=== PATIENT | female | born 1940 | race African-American/Black ===

== ENCOUNTER → 2016-09-02 | Outpatient (CLI) | payer MEDICARE, BC ==
[2015-07-01 17:00] VITALS: BP 151/71
[~2016-09-02] MED LIST: ASPI-482 PO; BIFI4CAP PO; CETI10TA16 PO; LORA0.5T PO; OMEP20TA PO; ONDA4TAB10 SL; POTA10TA31 PO; SIMV20TA PO
[2016-09-02 12:08] LABS: CREATININE 0.9 mg/dL (0.6-1.0); GFR 74.1
== END | disposition home or self-care (01) ==
LOC: LAB 11:23
PROVIDERS: ATTEND Psychiatry & Neurology Neurology
DX: R51 Headache (principal)
CPT/HCPCS: 36415; 82565; 84520

== ENCOUNTER → 2017-05-22 | Outpatient (CLI) | payer MEDICARE, BC ==
[2015-07-01 17:00] VITALS: BP 151/71
[~2017-05-22] MED LIST changes: -OMEP20TA PO; +OMEP20TA8 PO
== END | disposition home or self-care (01) ==
LOC: LAB 10:39
PROVIDERS: ATTEND Psychiatry & Neurology Neurology
DX: R41.3 Other amnesia (principal)
CPT/HCPCS: 36415; 82306; 82607

== ENCOUNTER → 2017-05-29 | Outpatient (CLI) | payer MEDICARE, BC ==
[2015-07-01 17:00] VITALS: BP 151/71
--- NOTE | 2017-05-29 16:33 | EEG ---
DATE OF SERVICE: 05/29/2017 ELECTROENCEPHALOGRAM NUMBER: [id number] OBJECTIVE: This is a 76-year-old female patient with history of memory loss. EEG was requested to evaluate cerebral activity. METHODS: Twenty electrodes were applied according to the international 10-20 electrode placement system. EKG monitoring, hyperventilation, intermittent photic stimulation, monopolar and bipolar montages are routinely utilized. The record was obtained on a digital system with video monitoring. FINDINGS: 1. Background: The patient was recorded in the awake and drowsy states. No sleep state was recorded. The overall background amplitude is 10-30 microvolts. A posterior dominant rhythm of 8 Hz is observed. 2. Abnormalities: No specific epileptiform discharge or electrographic seizure is seen. No focal or diffuse slowing. 3. Activation: Hyperventilation was performed with good efforts and normal response. Intermittent photic stimulation was performed with photic driving. IMPRESSION: This EEG is a normal study for the awake and drowsy states. No sleep state was recorded. No focal, lateralizing, specific epileptiform discharge or electrographic seizure is seen. BATSHEVA CALDWELL MD DR: PINKY/carlos JOB#: [id number] / [id number] JOEY
== END | disposition home or self-care (01) ==
LOC: RT 10:49
PROVIDERS: ATTEND Psychiatry & Neurology Neurology
DX: R06.4 Hyperventilation (principal); R41.3 Other amnesia
CPT/HCPCS: 95816

== ENCOUNTER 2017-11-07 12:29 | Emergency (ER) | payer MEDICARE, BC ==
[2017-11-07 13:04] LABS: ADD MAN DIFF? NO
[2017-11-07] MEDS: fentaNYL PF VIAL 100 MCG/2 ML VIAL IV (13:05)
[2017-11-07] MEDS: IV NORMAL SALINE 1000ML BAG 1,000 ML IV (13:05)
[2017-11-07 13:17] LABS: BASO % 1 % (0-3); BILIRUBIN,URINE NEGATIVE (NEG); CLARITY,URINE CLEAR; EOS # 0.3 x10^3/uL (0.0-0.7); EOS % 6 % (0-3); GLUCOSE,URINE NEGATIVE (NEG); HEMATOCRIT 40.4 % (36.0-47.0); HEMOGLOBIN 13.4 g/dL (12.0-15.5); LYMPH # 1.1 x10^3/uL (1.0-4.8); LYMPH % 23 % (24-48); MEAN CORPUSCULAR HEMOGLOBIN 30 pg (25-35); MEAN CORPUSCULAR HGB CONC 33 g/dL (31-37); MEAN CORPUSCULAR VOLUME 89 fL (79-100); MONO # 0.4 x10^3/uL (0.0-1.1); MONO % 9 % (0-9); NEUT % 62 % (31-73); NITRITE,URINE NEGATIVE (NEG); PH,URINE 7.5; PLATELET COUNT 215 x10^3/uL (140-400); PROTEIN,URINE NEGATIVE (NEG-TRACE); RED BLOOD COUNT 4.53 x10^6/uL (3.50-5.40); UROBILINOGEN,URINE 0.2 mg/dL (0.2 mg/dL); WHITE BLOOD COUNT 4.8 x10^3/uL (4.0-11.0)
[2017-11-07 13:21] LABS: ANION GAP 9 (6-14); BLOOD UREA NITROGEN 18 mg/dL (7-20); CALCIUM 9.4 mg/dL (8.5-10.1); CARBON DIOXIDE 29 mmol/L (21-32); CHLORIDE 102 mmol/L (98-107); CREATININE 1.2 mg/dL (0.6-1.0); GLUCOSE 95 mg/dL (70-99); POTASSIUM 3.9 mmol/L (3.5-5.1); SODIUM 140 mmol/L (136-145)
[2017-11-07 13:22] LABS: PROTHROMBIN TIME PATIENT 12.6 SEC (11.7-14.0)
[2017-11-07 13:26] LABS: ALBUMIN 3.7 g/dL (3.4-5.0); ALK PHOS 53 U/L (46-116); ALT (SGPT) 33 U/L (14-59); AST (SGOT) 23 U/L (15-37); DIRECT BILIRUBIN < 0.1 mg/dL (0.0-0.2); LIPASE 125 U/L (73-393); MAGNESIUM 2.3 mg/dL (1.8-2.4); TOTAL BILIRUBIN 0.3 mg/dL (0.2-1.0); TOTAL PROTEIN 7.2 g/dL (6.4-8.2)
[2017-11-07 13:28] LABS: BARBITURATES NEG (NEG); BENZODIAZEPINES NEG (NEG); CANNABINOIDS NEG (NEG); COCAINE NEG (NEG); METHADONE NEG (NEG); OPIATES NEG (NEG); PHENCYCLIDINE NEG (NEG)
[2017-11-07 13:29] LABS: AMPHETAMINE/METHAMPHETAMINE NEG (NEG); ETHANOL, URINE NEG (NEG)
[2017-11-07 13:34] LABS: TROPONINI < 0.017 ng/mL (0.000-0.055)
[2017-11-07 13:37] LABS: COLOR,URINE STRAW
[2017-11-07 13:40] LABS: THYROID STIM HORMONE (TSH) 0.525 uIU/mL (0.358-3.74)
[2017-11-07 13:40] LABS: BACTERIA,URINE 0 /HPF (0-FEW); RBC,URINE 0 /HPF (0-2); SQUAMOUS EPITHELIAL CELL,UR FEW /LPF; WBC,URINE 0 /HPF (0-4)
[2017-11-07 13:43] LABS: CKMB MASS < 0.5 ng/mL (0.0-3.6); CREATINE KINASE 55 U/L (26-192)
[2017-11-07 13:43] LABS: NT-PRO BNP 140 pg/mL (0-449)
== END 2017-11-07 15:22 | disposition home or self-care (01) ==
LOC: ER 12:29
DX: K59.00 Constipation, unspecified (principal); R10.13 Epigastric pain; R10.32 Left lower quadrant pain; I10 Essential (primary) hypertension; E11.9 Type 2 diabetes mellitus without complications
CPT/HCPCS: 36415; 74022; 80048; 80076; 80307; 81001; 82553; 83690; 83735; 83880; 84443; 84484; 85025; 85610; 93005; 96361; 96374; 99285-25; J3010; J7030

== ENCOUNTER → 2018-03-08 | Outpatient (CLI) | payer MEDICARE, BC ==
[2018-03-08 14:50] LABS: ALK PHOS 55 U/L (46-116); ALT (SGPT) 25 U/L (14-59); ANION GAP 7 (6-14); AST (SGOT) 19 U/L (15-37); BLOOD UREA NITROGEN 14 mg/dL (7-20); BUN/CREATININE RATIO 14 (6-20); CALCIUM 9.2 mg/dL (8.5-10.1); CARBON DIOXIDE 31 mmol/L (21-32); CHLORIDE 104 mmol/L (98-107); CREATINE KINASE 66 U/L (26-192); GFR 65.4; GLUCOSE 87 mg/dL (70-99); POTASSIUM 3.7 mmol/L (3.5-5.1); SODIUM 142 mmol/L (136-145); TOTAL BILIRUBIN 0.4 mg/dL (0.2-1.0); TOTAL PROTEIN 7.9 g/dL (6.4-8.2)
[2018-03-08 15:27] LABS: VITAMIN-B12 664 pg/mL (247-911)
[2018-03-08 16:17] LABS: SEDIMENTATION RATE 8 (0-25)
== END | disposition home or self-care (01) ==
LOC: LAB 14:05
DX: R41.3 Other amnesia (principal); I10 Essential (primary) hypertension; E11.9 Type 2 diabetes mellitus without complications; E78.5 Hyperlipidemia, unspecified; E78.00 Pure hypercholesterolemia, unspecified; K21.9 Gastro-esophageal reflux disease without esophagitis
CPT/HCPCS: 36415; 80053; 82550; 82607; 84443; 85651

== ENCOUNTER 2018-03-29 16:17 | Emergency (ER) | payer MEDICARE, BC ==
[~2018-03-29] VITALS: Ht 157.5 cm; Wt 57.2 kg
[2018-03-29 16:38] VITALS: BP 133/65
[2018-03-29] MEDS ORDERED: PRED20TA PO (17:04)
--- NOTE | 2018-03-29 17:04 | PHYS DOC ---
Past Medical History Past Medical History: Anxiety, Constipation, GERD, Hypertension Additional Past Medical Histor: Palpitations, allergies Past Surgical History: No Surgical History Additional Past Surgical Histo: Hemmorhoids Alcohol Use: None Drug Use: None Adult General Chief Complaint Chief Complaint: SKIN RASH/ABSCESS HPI HPI Patient is a 77 year old female who presents with pruritic, erythematous rash to trunk and extremities for the last 2 days. Patient denies any new products. She has tried some [id number] cream without relief. Review of Systems Review of Systems Constitutional: Denies fever or chills [] Respiratory: Denies cough or shortness of breath [] Integument: Rash to trunk and extremities All other systems were reviewed and found to be within normal limits, except as documented in this note. Allergies Allergies Allergies Coded Allergies Type Severity Reaction Last Updated Verified No Known Drug Allergies 06/13/14 No Physical Exam Physical Exam Constitutional: Well developed, well nourished, no acute distress, non-toxic appearance. [] HENT: Normocephalic, atraumatic Eyes: PERRLA, EOMI, conjunctiva normal, no discharge. [] Neck: Normal range of motion, no tenderness, supple, no stridor. [] Skin: Warm, dry, no erythema. Erythematous, maculopapular rash to trunk and extremities Neurologic: Alert and oriented X 3, normal motor function, normal sensory function, no focal deficits noted. [] Psychologic: Affect normal, judgement normal, mood normal. [] Current Patient Data Vital Signs Vital Signs Date Time Temp Pulse Resp B/P (MAP) Pulse Ox O2 Delivery O2 Flow Rate FiO2 03/29/18 16:38 99.4 89 16 133/65 (87) 98 Room Air 99.4 EKG EKG [] Radiology/Procedures Radiology/Procedures [] Course & Med Decision Making Course & Med Decision Making Pertinent Labs and Imaging studies reviewed. (See chart for details) Plan: Prednisone burst, supportive care, follow up with PCP, return precautions reviewed Dragon Disclaimer Dragon Disclaimer This electronic medical record was generated, in whole or in part, using a voice recognition dictation system. Departure Departure Impression: Primary Impression: Allergic dermatitis Disposition: 01 HOME, SELF-CARE Condition: GOOD Referrals: CHRISTIAN CASAREZ Jr, MD (PCP) Patient Instructions: Contact Dermatitis Scripts Prednisone (PREDNISONE) 20 Mg Tablet 40 MG PO DAILY, #10 TAB Prov: ALBARO GIANG APRN 03/29/18 ALBARO GIANG APRN Mar 29, 2018 17:04
== END 2018-03-29 17:11 | disposition home or self-care (01) ==
LOC: ER 16:17
DX: L23.9 Allergic contact dermatitis, unspecified cause (principal); K21.9 Gastro-esophageal reflux disease without esophagitis; I10 Essential (primary) hypertension
CPT/HCPCS: 99283

== ENCOUNTER → 2018-04-20 | Outpatient (CLI) | payer MEDICARE, BC ==
[2018-03-29 16:38] VITALS: BP 133/65
[~2018-04-20] MED LIST changes: +PRED20TA PO
--- NOTE | 2018-04-20 09:56 | RAD ---
CT HEAD WO CONTRAST History: CHRONIC NONINTRACTABLE HEADACHE Comparison: July 01, 2015 Technique: Noncontrast CT imaging was performed of the head. Exposure: One or more of the following individualized dose reduction techniques were utilized for this examination: 1. Automated exposure control 2. Adjustment of the mA and/or kV according to patient size 3. Use of iterative reconstruction technique. Findings: No acute extra-axial or parenchymal hemorrhage is identified. There is no significant intra-axial mass effect, midline shift, or extra-axial fluid collection. The galeano-white differentiation of the major vascular territories is preserved. The ventricles, sulci, and cisterns are within normal limits in size and configuration. The mastoid air cells and the visualized paranasal sinuses are aerated. No acute calvarial abnormality is identified. There is some atherosclerotic calcification of the carotid siphons bilaterally. Impression: 1. No acute intracranial abnormality is identified. Electronically signed by: Julio Miles MD (04/20/2018 9:53 AM) [facility]
== END | disposition home or self-care (01) ==
LOC: CT 07:57
PROVIDERS: ATTEND Psychiatry & Neurology Neurology
DX: I65.23 Occlusion and stenosis of bilateral carotid arteries (principal); I10 Essential (primary) hypertension; E11.9 Type 2 diabetes mellitus without complications; K21.9 Gastro-esophageal reflux disease without esophagitis; E78.00 Pure hypercholesterolemia, unspecified; Z86.010 Personal history of colon polyps; Z83.3 Family history of diabetes mellitus
CPT/HCPCS: 70450

== ENCOUNTER → 2018-10-28 | Outpatient (CLI) | payer MEDICARE, BC ==
--- NOTE | 2018-10-28 12:57 | KCIC ---
EXAM: Brain MRI without contrast. HISTORY: Slurred speech. TECHNIQUE: Multiplanar, multisequence magnetic resonance imaging of the brain was performed without contrast. COMPARISON: None. FINDINGS: There is no restricted diffusion to suggest acute or subacute infarction. There are multiple tiny foci of subtle effect throughout the cerebral hemispheres, likely due to chronic microhemorrhage. There is no mass effect or midline shift. There is no hydrocephalus. There are multiple scattered foci of T2/FLAIR hyperintensity within the cerebral white matter. There is mild cerebral volume loss. There is evidence of lens surgery. There is paranasal sinus because of thickening with small left maxillary sinus mucous retention cysts. The mastoid air cells are unremarkable. There are normal flow voids within the cerebral vessels. No calvarial lesion is seen. There are degenerative changes at the visualized upper cervical levels. IMPRESSION: 1. Multiple scattered focal areas of signal change within the cerebral white matter, a nonspecific finding which is most commonly due to chronic small vessel disease in patients of this age. 2. Scattered foci of suspected chronic microhemorrhage within the cerebral hemispheres. 3. Mild cerebral volume loss. 4. No acute intracranial finding. Electronically signed by: Saritha Capone MD (10/28/2018 12:54 PM) [facility]
== END | disposition home or self-care (01) ==
LOC: KCIC MRI 11:01
PROVIDERS: ATTEND Psychiatry & Neurology Neurology
DX: G93.89 Other specified disorders of brain (principal); J34.1 Cyst and mucocele of nose and nasal sinus; R47.81 Slurred speech; M47.892 Other spondylosis, cervical region
CPT/HCPCS: 70551

== ENCOUNTER → 2018-12-24 | Outpatient (CLI) | payer MEDICARE, BC ==
--- NOTE | 2018-12-31 20:15 | EEG ---
DATE OF SERVICE: 12/24/2018 EEG NUMBER: [id number] OBJECTIVE: This is a 78-year-old -[place] female patient with history of cognitive function impairment and memory decline. EEG was requested to evaluate cerebral activity. METHODS: Twenty electrodes were applied according to the international 10-20 electrode placement system. EKG monitoring, hyperventilation, intermittent photic stimulation, monopolar and bipolar montages were routinely utilized. The record was obtained on a digital system with video monitoring. FINDINGS: 1. Background: The patient was recorded in the awake and drowsy states. No actual sleep state was recorded. The overall background amplitude is 10-20 microvolts. A posterior dominant rhythm of 8 Hz was observed. 2. Abnormalities: No specific epileptiform discharge or electrographic seizure was seen. No focal or diffuse slowing. 3. Activation: Hyperventilation was performed with fair efforts and normal response. Intermittent photic stimulation was performed with photic driving. IMPRESSION: This EEG is within the normal limits of the study for the awake and drowsy states. No actual sleep state was recorded. No focal, lateralizing, specific epileptiform discharge or electrographic seizure is seen. BATSHEVA CALDWELL MD DR: PINKY/carlos JOB#: [id number] / [id number] JOEY
== END | disposition home or self-care (01) ==
LOC: RT 09:54
PROVIDERS: ATTEND Psychiatry & Neurology Neurology
DX: R41.89 Other symptoms and signs involving cognitive functions and awareness (principal)
CPT/HCPCS: 95816

== ENCOUNTER → 2019-03-11 | Outpatient (CLI) | payer MEDICARE, BC ==
--- NOTE | 2019-03-11 12:24 | EKG ---
[facility] [address] [place] [address] Test Date: 2019-03-11 Test Time: 12:02:27 Pat Name: SEGUNDO SANCHEZ Department: Room: Gender: F [employer] Control Room Operator: : 1940 Requested By: BATSHEVA CALDWELL Order Number: [id number] Reading MD: Measurements Intervals [place] Rate: 65 P: 47 DC: 140 QRS: -19 QRSD: 74 T: 13 QT: 426 QTc: 444 Interpretive Statements SINUS RHYTHM LEFTWARD AXIS NO SPECIFIC ECG ABNORMALITIES RI6.01 Unconfirmed report Compared to ECG 11/07/2017 12:40:39 Left-axis deviation now present
== END | disposition home or self-care (01) ==
LOC: EKG 11:43
PROVIDERS: ATTEND Psychiatry & Neurology Neurology
DX: F03.90 Unspecified dementia, unspecified severity, without behavioral disturbance, psychotic disturbance, mood disturbance, and anxiety (principal)
CPT/HCPCS: 93005

== ENCOUNTER 2019-09-18 14:08 | Emergency (ER) | payer MEDICARE, BC ==
[~2019-09-18] VITALS: Ht 157.5 cm; Wt 114.0 kg
[2019-09-18 15:03] LABS: BASO % 1 % (0-3); EOS # 0.3 x10^3/uL (0.0-0.7); EOS % 9 % (0-3); HEMATOCRIT 38.8 % (36.0-47.0); HEMOGLOBIN 13.1 g/dL (12.0-15.5); LYMPH # 1.6 x10^3/uL (1.0-4.8); LYMPH % 52 % (24-48); MEAN CORPUSCULAR HEMOGLOBIN 30 pg (25-35); MEAN CORPUSCULAR HGB CONC 34 g/dL (31-37); MEAN CORPUSCULAR VOLUME 89 fL (79-100); MONO # 0.3 x10^3/uL (0.0-1.1); MONO % 9 % (0-9); NEUT # 0.9 x10^3/uL (1.8-7.7); NEUT % 29 % (31-73); PLATELET COUNT 152 x10^3/uL (140-400); RED BLOOD COUNT 4.38 x10^6/uL (3.50-5.40); RED CELL DISTRIBUTION WIDTH 13.6 % (11.5-14.5); WHITE BLOOD COUNT 3.1 x10^3/uL (4.0-11.0)
[2019-09-18 15:11] LABS: CALCIUM 9.3 mg/dL (8.5-10.1); CREATININE 0.9 mg/dL (0.6-1.0); GFR 73.5; POTASSIUM 3.9 mmol/L (3.5-5.1)
[2019-09-18 15:17] VITALS: BP 153/75
[2019-09-18 15:17] LABS: ALBUMIN 3.5 g/dL (3.4-5.0); ALBUMIN/GLOBULIN RATIO 1.1 (1.0-1.7); TOTAL BILIRUBIN 0.4 mg/dL (0.2-1.0); TOTAL PROTEIN 6.6 g/dL (6.4-8.2)
--- NOTE | 2019-09-18 15:30 | RAD ---
EXAM: Head CT without contrast. HISTORY: Headaches. Hypertension. TECHNIQUE: Computed tomographic images of the head were obtained without contrast. *One or more of the following individualized dose reduction techniques were utilized for this examination: 1. Automated exposure control. 2. Adjustment of the mA and/or kV according to patient size. 3. Use of iterative reconstruction technique. COMPARISON: MRI dated 10/28/2018. FINDINGS: There is no acute or subacute extra-axial or intraparenchymal hemorrhage. There is no mass effect or midline shift. There is no hydrocephalus. There are areas of decreased attenuation within the cerebral white matter, nonspecific and likely related to chronic small vessel disease. The visualized portions of the orbits, paranasal sinuses and mastoid air cells are unremarkable. No suspicious calvarial lesion is seen. IMPRESSION: No acute intracranial findings. Electronically signed by: Saritha Capone MD (09/18/2019 3:28 PM) [facility]
[2019-09-18 15:44] LABS: % ATYL 8 % (0-0); % BASOS 2 % (0-3); % EOS 2 % (0-5); % LYMPHS 58 % (24-48); % MONOS 4 % (0-10); % SEGS 26 % (35-66)
[2019-09-18 15:45] LABS: PLT ESTIMATE ADEQUATE (ADEQUATE)
[2019-09-18] MEDS ORDERED: diphenhydrAMINE 50 MG/ML VIAL IVP ONE (16:00)
[2019-09-18] MEDS ORDERED: KETOROLAC 30 MG/ML VIAL. IV ONE (16:00)
[2019-09-18] MEDS ORDERED: IV NORMAL SALINE 500ML BAG 500 ML IV ONE (16:00)
[2019-09-18 16:06] LABS: BILIRUBIN,URINE NEGATIVE (NEG); CLARITY,URINE CLEAR; COLOR,URINE YELLOW; NITRITE,URINE NEGATIVE (NEG); PH,URINE 7.5; PROTEIN,URINE NEGATIVE (NEG-TRACE); UROBILINOGEN,URINE 0.2 mg/dL (0.2 mg/dL)
--- NOTE | 2019-09-18 16:09 | PHYS DOC ---
Past Medical History Past Medical History: Anxiety, Constipation, GERD, Hypertension Additional Past Medical Histor: Palpitations, allergies (KAMAR DIEZ APRN) Past Surgical History: No Surgical History Additional Past Surgical Histo: Hemmorhoids (KAMAR DIEZ APRN) Alcohol Use: None Drug Use: None (KAMAR DIEZ APRN) Adult General Chief Complaint Chief Complaint: HYPERTENSION HPI HPI Patient is a 79 year old AA female, accompanied by her family, who presents to the emergency department with complaints of high blood pressure. Daughter at the bedside also reports that mother has reported several headaches this week. The patient states that the light has been bothering her eyes and she feels nauseated. Patient reports the light is bothering her right eye more than her left eye. She denies any vision changes. Daughter states that the patient just started taking Aricept this week for dementia. Daughter states she has been checking patient's blood pressure because Aricept can cause low blood pressure. She reports that her mother takes metoprolol for tremors. She denies any history of high blood pressure. Patient denies any chest pain, shortness of breath, or vomiting. Pt unable to rate her pain on the pain scale. All other ROS is neg unless otherwise noted in HPI. (KAMAR DIEZ APRN) Review of Systems Review of Systems See Above (KAMAR DIEZ APRN) Current Medications Current Medications Current Medications Medications (Trade) Dose Ordered Sig/Aimee Start Time Stop Time Status Last Admin Dose Admin Diphenhydramine HCl (Benadryl) 12.5 mg 1X ONCE 09/18/19 16:00 09/18/19 16:01 DC 09/18/19 16:04 12.5 MG Ketorolac Tromethamine (Toradol 30mg Vial) 10 mg 1X ONCE 09/18/19 16:00 09/18/19 16:01 DC 09/18/19 16:00 10 MG Sodium Chloride 500 ml @ 500 mls/hr 1X ONCE 09/18/19 16:00 09/18/19 16:59 DC 09/18/19 16:00 500 MLS/HR (ROSARIO TREJO DO) Allergies Allergies Allergies Coded Allergies Type Severity Reaction Last Updated Verified No Known Drug Allergies 06/13/14 No (ROSARIO TREJO DO) Physical Exam Physical Exam See Above Constitutional: Well developed, well nourished, no acute distress, non-toxic appearance. [] HENT: Normocephalic, atraumatic, bilateral external ears normal, oropharynx moist, no oral exudates, nose normal. [] Eyes: PERRLA, EOMI, conjunctiva normal, no discharge. [] Neck: Normal range of motion, no stridor. [] Cardiovascular:Heart rate regular rhythm Lungs & Thorax: Bilateral breath sounds clear to auscultation, Respirations even and unlabored, no retractions, no respiratory distress [] Skin: Warm, dry, no erythema, no rash. [] Extremities: No cyanosis, ROM intact, no edema. [] Neurologic: Alert and oriented to person and place, hx of dementia, no focal deficits noted. [] Psychologic: Affect normal, judgement normal, mood normal. [] (KAMAR DIEZ APRN) Current Patient Data Vital Signs Vital Signs Date Time Temp Pulse Resp B/P (MAP) Pulse Ox O2 Delivery O2 Flow Rate FiO2 09/18/19 15:17 66 15 99 09/18/19 14:15 98.4 198/90 (126) Room Air 98.4 (TREJO,ROSARIO R DO) Lab Values Laboratory Tests Test 09/18/19 14:10 09/18/19 14:54 Urine Collection Type Unknown Urine Color Yellow Urine Clarity Clear Urine pH 7.5 Urine Specific [place] <=1.005 Urine Protein Negative mg/dL (NEG-TRACE) Urine Glucose (UA) Negative mg/dL (NEG) Urine Ketones (Stick) Negative mg/dL (NEG) Urine Blood Negative (NEG) Urine Nitrite Negative (NEG) Urine Bilirubin Negative (NEG) Urine Urobilinogen Dipstick 0.2 mg/dL (0.2 mg/dL) Urine Leukocyte Esterase Small (NEG) Urine RBC 0 /HPF (0-2) Urine WBC Occ /HPF (0-4) Urine Squamous Epithelial Cells Few /LPF Urine Bacteria 0 /HPF (0-FEW) White Blood Count 3.1 x10^3/uL (4.0-11.0) L Red Blood Count 4.38 x10^6/uL (3.50-5.40) Hemoglobin 13.1 g/dL (12.0-15.5) Hematocrit 38.8 % (36.0-47.0) Mean Corpuscular Volume 89 fL (79-100) Mean Corpuscular Hemoglobin 30 pg (25-35) Mean Corpuscular Hemoglobin Concent 34 g/dL (31-37) Red Cell Distribution Width 13.6 % (11.5-14.5) Platelet Count 152 x10^3/uL (140-400) Neutrophils (%) (Auto) 29 % (31-73) L Lymphocytes (%) (Auto) 52 % (24-48) H Monocytes (%) (Auto) 9 % (0-9) Eosinophils (%) (Auto) 9 % (0-3) H Basophils (%) (Auto) 1 % (0-3) Neutrophils # (Auto) 0.9 x10^3/uL (1.8-7.7) L Lymphocytes # (Auto) 1.6 x10^3/uL (1.0-4.8) Monocytes # (Auto) 0.3 x10^3/uL (0.0-1.1) Eosinophils # (Auto) 0.3 x10^3/uL (0.0-0.7) Basophils # (Auto) 0.0 x10^3/uL (0.0-0.2) Segmented Neutrophils % 26 % (35-66) L Lymphocytes % 58 % (24-48) H Atypical Lymphocytes % (Manual) 8 % (0-0) H Monocytes % 4 % (0-10) Eosinophils % 2 % (0-5) Basophils % 2 % (0-3) Platelet Estimate Adequate (ADEQUATE) Sodium Level 147 mmol/L (136-145) H Potassium Level 3.9 mmol/L (3.5-5.1) Chloride Level 108 mmol/L (98-107) H Carbon Dioxide Level 30 mmol/L (21-32) Anion Gap 9 (6-14) Blood Urea Nitrogen 14 mg/dL (7-20) Creatinine 0.9 mg/dL (0.6-1.0) Estimated GFR (Cockcroft-Gault) 73.5 BUN/Creatinine Ratio 16 (6-20) Glucose Level 104 mg/dL (70-99) H Calcium Level 9.3 mg/dL (8.5-10.1) Total Bilirubin 0.4 mg/dL (0.2-1.0) Aspartate Amino Transferase (AST) 21 U/L (15-37) Alanine Aminotransferase (ALT) 19 U/L (14-59) Alkaline Phosphatase 57 U/L (46-116) Total Protein 6.6 g/dL (6.4-8.2) Albumin 3.5 g/dL (3.4-5.0) Albumin/Globulin Ratio 1.1 (1.0-1.7) Laboratory Tests 09/18/19 14:54 Laboratory Tests 09/18/19 14:54 Microbiology 09/18/19 Urine Culture - Final, Complete 09/18/19 Urine Culture Result 1 (ADELINE) - Final, Complete (ROSARIO TREJO DO) EKG EKG 1421- SR, NO STEMI, rate [address] Trejo[] (KAMAR DIEZ APRN) Radiology/Procedures Radiology/Procedures PROCEDURE: CT HEAD WO CONTRAST EXAM: Head CT without contrast. HISTORY: Headaches. Hypertension. TECHNIQUE: Computed tomographic images of the head were obtained without contrast. *One or more of the following individualized dose reduction techniques were utilized for this examination: 1. Automated exposure control. 2. Adjustment of the mA and/or kV according to patient size. 3. Use of iterative reconstruction technique. COMPARISON: MRI dated 10/28/2018. FINDINGS: There is no acute or subacute extra-axial or intraparenchymal hemorrhage. There is no mass effect or midline shift. There is no hydrocephalus. There are areas of decreased attenuation within the cerebral white matter, nonspecific and likely related to chronic small vessel disease. The visualized portions of the orbits, paranasal sinuses and mastoid air cells are unremarkable. No suspicious calvarial lesion is seen. IMPRESSION: No acute intracranial findings. (KAMAR DIEZ APRN) Course & Med Decision Making Course & Med Decision Making Pertinent Labs and Imaging studies reviewed. (See chart for details) Patient is a 79-year-old female who presented to the emergency room with concerns of high blood pressure and frequent headaches. Patient's daughter stated she had been monitoring her mother's blood pressure this week due to starting Aricept. Her daughter states that she read the Aricept can cause low blood pressure and that is why she had been checking her mother's blood pressure this week. Patient reported a headache with photosensitivity that was worse in the right eye than the left eye. CT of her head revealed no abnormal findings. CBC revealed a white blood cell count of 3.1, normal hemoglobin and hematocrit; CMP revealed a sodium of 147, chloride of 108, and glucose of 104 was otherwise unremarkable, UA was also unremarkable. The patient was given 500 mL of normal saline, 10 mg of IV Toradol, and 12.5 mg of IV Benadryl. She reported relief of her pain after these medications. Patient's blood pressure on discharge is 1 58/75, heart rate of 60. Advise the patient and her family to follow up with her primary care doctor about high blood pressure and headaches this week. Continue taking home medications as prescribed, may take Tylenol or ibuprofen as needed for headache. Return to the emergency room if symptoms worsen. The patient's daughter and verbalized an understanding of home care, medications, follow-up, and return to ED instructions and were in agreement with the plan of care. [] (AKMAR DIEZ APRN) Dragon Disclaimer Dragon Disclaimer This electronic medical record was generated, in whole or in part, using a voice recognition dictation system. (KAMAR DIEZ APRN) Departure Departure Impression: Primary Impression: Headache Additional Impression: Hypertension Disposition: HOME, SELF-CARE Condition: STABLE Referrals: UNKNOWN PCP NAME (PCP) Patient Instructions: General Headache Without Cause, Bxha-of-Flef, Hypertension, Oazh-vd-Kbda Additional Instructions: Your blood pressure on arrival was 198/90. At discharge it was 153/75. CT of your head revealed no abnormal findings. Continue taking your home medications as prescribed. Tylenol or ibuprofen as needed for headache. Follow up with your primary care doctor about your headaches and high blood pressure in 1-2 days. Return to the ER if symptoms worsen. Attending Signature Attending Signature I have reviewed the PA/VIOLIN TEACHER's note and plan of care. I was available for consultation as needed during the patient's visit in the emergency department. I agree with the clinical impression, plan, and disposition. (ROSARIO TREJO DO) Problem Qualifiers Primary Impression: Headache Headache type: unspecified Headache chronicity pattern: acute headache Intractability: not intractable Qualified Codes: R51 - Headache Additional Impression: Hypertension Hypertension type: unspecified Qualified Codes: I10 - Essential (primary) hypertension KAMAR DIEZ APRN Sep 18, 2019 16:09 ROSARIO TREJO DO Sep 21, 2019 15:23
[2019-09-18 16:20] LABS: BACTERIA,URINE 0 /HPF (0-FEW); RBC,URINE 0 /HPF (0-2); SQUAMOUS EPITHELIAL CELL,UR FEW /LPF; WBC,URINE OCC /HPF (0-4)
--- NOTE | 2019-09-19 11:15 | EKG ---
[facility] [address] [place] [address] Test Date: 2019-09-18 Test Time: 14:21:11 Pat Name: SEGUNDO SANCHEZ Department: Room: Gender: F Field Laborer: : 1940 Requested By: KAMAR DIEZ Order Number: [id number] Reading MD: Measurements Intervals [place] Rate: 68 P: OK: QRS: -28 QRSD: 74 T: -17 QT: 446 QTc: 474 Interpretive Statements IRREGULAR RHYTHM, NO P-WAVE FOUND LEFTWARD AXIS T ABNORMALITY IN INFERIOR LEADS PROLONGED QT ABNORMAL ECG RI6.01 No previous ECG available for comparison
== END 2019-09-18 17:01 | disposition home or self-care (01) ==
LOC: ER 14:08
DX: I10 Essential (primary) hypertension (principal); R51 Headache; F41.9 Anxiety disorder, unspecified; K59.09 Other constipation; K21.9 Gastro-esophageal reflux disease without esophagitis; Z98.890 Other specified postprocedural states
CPT/HCPCS: 36415; 70450; 80053; 81001; 85007; 85025; 87086; 93005; 96374; 96375; 99285; J1200; J1885; J7040

== ENCOUNTER 2020-11-07 20:53 | Emergency (ER) | payer MEDICARE, BC ==
[~2020-11-07] VITALS: Ht 157.5 cm; Wt 50.0 kg
[2020-11-07 21:00] VITALS: BP 190/89
[2020-11-07] MEDS ORDERED: CEPH500C PO (21:35)
--- NOTE | 2020-11-07 21:36 | ED.ADGEN ---
Past Medical History Past Medical History: Anxiety, Constipation, GERD, Hypertension Additional Past Medical Histor: Palpitations, allergies Past Surgical History: No Surgical History Additional Past Surgical Histo: Hemmorhoids Smoking Status: Never Smoker Alcohol Use: None Drug Use: None General Adult EDM: Chief Complaint: ITCHING HPI: HPI: Patient is a 80 year old female, accompanied by her daughter, who presents emergency department with complaints of a red, dry, itchy skin to both her antecubital areas and to both of her inner thighs patient also has some right dry skin to her abdomen. Patient's daughter reports that there has been some drainage from between her thighs. She took her to urgent care today and the patient was prescribed Medrol Dosepak and triamcinolone cream. Patient's daughter wanted to bring her here for second opinion. Patient and her daughter denies any new medications, detergents, environmental exposures, outdoor work, or foods. Patient denies any shortness of breath, nausea, vomiting, diarrhea, abdominal pain, chest pain, wheezing, fever, sore throat, or body aches. The patient currently denies any pain. Review of Systems: Review of Systems: Complete ROS is negative unless otherwise noted in HPI. Allergies: Allergies: Allergies Coded Allergies Type Severity Reaction Last Updated Verified No Known Drug Allergies 06/13/14 No Physical Exam: PE: See Above Constitutional: Well developed, well nourished, no acute distress, non-toxic appearance. [] HENT: Normocephalic, atraumatic, bilateral external ears normal, nose normal. [] Eyes: PERRLA, EOMI, conjunctiva normal, no discharge. [] Neck: Normal range of motion, no stridor. [] Cardiovascular:Heart rate regular rhythm Lungs & Thorax: Respirations even and unlabored, no retractions, no respiratory distress Skin: Warm, dry; generalized dry scaly skin. Area is erythemic patches of skin to bilateral antecubital spaces and to bilateral inguinal folds and inner thighs, concerning for infected atopic dermatitis. Extremities: No cyanosis, nontender, no obvious deformities, ROM intact, no edema. [] Neurologic: Alert and oriented X 3, no focal deficits noted. [] Psychologic: Affect normal, judgement normal, mood normal. [] EKG: EKG: [] Heart Score: C/O Chest Pain: No Risk Factors: Risk Factors: DM, Current or recent (<one month) smoker, HTN, HLP, family history of CAD, obesity. Risk Scores: Score 0 - 3: 2.5% MACE over next 6 weeks - Discharge Home Score 4 - 6: 20.3% MACE over next 6 weeks - Admit for Clinical Observation Score 7 - 10: 72.7% MACE over next 6 weeks - Early Invasive Strategies Radiology/Procedures: Radiology/Procedures: [] Course & Med Decision Making: Course & Med Decision Making Pertinent Labs and Imaging studies reviewed. (See chart for details) 80-year-old female presents emergency department with complaints of a red itchy rash. Patient and her family are unsure of how long the rash has been present. Physical exam is most consistent with infected atopic dermatitis. I advised the patient's daughter to stop taking the oral steroids, and encouraged her to continue using the steroid cream as prescribed. Will prescribe antibiotic to help with the infection. I recommended that the patient limit showers to every other day. Apply a hypoallergenic moisturizing cream such as Cetaphil to her entire body twice daily and as needed. Follow-up with her primary care doctor next week for repeat evaluation. Patient may need to go to a central processing technician for further evaluation and treatment. Return to the ER if symptoms worsen or fever develops. Patient and her daughter verbalized an understanding of home care, medications, follow-up, and return to ED instructions and were in agreement with the plan of care. [] Alma Disclaimer: Alma Disclaimer: This electronic medical record was generated, in whole or in part, using a voice recognition dictation system. Departure Departure Impression: Primary Impression: Flexural atopic dermatitis Disposition: 01 DC HOME SELF CARE/HOMELESS Condition: STABLE Referrals: UNKNOWN PCP NAME (PCP) Patient Instructions: Eczema Additional Instructions: Fill the prescription and take as directed, stop taking the oral steroids that were previously prescribed. Continue using the steroid cream as prescribed. Limit showers to every other day. Apply a hypoallergenic moisturizing cream such as Cetaphil to entire body twice daily and as needed. Follow-up with her primary care doctor next week for repeat evaluation. Patient may need to go to a central processing technician for further evaluation and treatment. Return to the ER if symptoms worsen or fever develops. [] Scripts Cephalexin (CEPHALEXIN) 500 Mg Capsule 1 CAP PO QID for 10 Days, #40 CAP 0 Refills Prov: KAMAR DIEZ APRN 11/07/20 KAMAR DIEZ APRN Nov 07, 2020 21:36
[2020-11-07] MEDS ORDERED: CEPHALEXIN 250 MG CAPSULE. PO ONE (22:00)
== END 2020-11-07 21:40 | disposition home or self-care (01) ==
LOC: ER 20:53
DX: L20.82 Flexural eczema (principal); F41.9 Anxiety disorder, unspecified; K21.9 Gastro-esophageal reflux disease without esophagitis; I10 Essential (primary) hypertension; Z98.890 Other specified postprocedural states
CPT/HCPCS: 99283

== ENCOUNTER 2021-07-14 16:01 | Emergency (ER) | payer MEDICARE, BC ==
[~2021-07-14] VITALS: Ht 157.5 cm; Wt 47.6 kg
[~2021-07-14 16:01] MED LIST changes: +BACI1PAC TP; +BACI3.5O8 OD; +CEPH500C PO; +DIPH28CR TP; +DONE23TA PO; +FURO20TA3 PO; +GABA-585 PO; +GARL100T PO; +MEMA10TA PO; +METO100T5 PO; +MULT-317 PO; +OMEG1CAP50 PO; +SERT25TA PO; +UBID100T5 PO
--- NOTE | 2021-07-14 17:44 | PHYS DOC ---
Past Medical History Past Medical History: Anxiety, Constipation, GERD, Hypertension Additional Past Medical Histor: Palpitations, allergies Past Surgical History: No Surgical History Additional Past Surgical Histo: Hemmorhoids Smoking Status: Never Smoker Alcohol Use: None Drug Use: None General Adult EDM: Chief Complaint: MECHANICAL FALL HPI: HPI: Patient is a 80 year old female who presents with here with her he states that they were at the store and patient was getting out of the vehicle when she tripped and fell. Patient states that she tripped and fell. She does have Alzheimer's and dementia. Patient's states that she is alert and oriented to and she is acting normal for self and there was no syncopal episode. Patient states that she did not pass out and denies any headache, dizziness, chest pain, shortness of air, nausea, vomiting, abdominal pain, fever, numbness or tingling, focal weakness, vision change. Patient does have a quarter sized hematoma to the left forehead with a superficial abrasion. Patient states that she does not remember the last time that she has had a tetanus shot and she has not had one in some time. Patient is able to tell you her name and date of but is unsure of where she has had exactly. She does know she is in the hospital. Patient does answer my questions appropriately and states that she is answering the questions appropriately. Patient denies any type of pain. Denies blood thinners. Review of Systems: Review of Systems: Constitutional: Denies fever or chills. [] Eyes: Denies change in visual acuity. [] HENT: Denies nasal congestion or sore throat. [] Respiratory: Denies cough or shortness of breath. [] Cardiovascular: Denies chest pain or edema. [] GI: Denies abdominal pain, nausea, vomiting, bloody stools or diarrhea. [] : Denies dysuria. [] Musculoskeletal: Denies back pain or joint pain. [] Integument: Denies rash. +forehead contusion[] Neurologic: + headache, denies focal weakness or sensory changes. [] Endocrine: Denies polyuria or polydipsia. [] Lymphatic: Denies swollen glands. [] Psychiatric: Denies depression or anxiety. [] Heart Score: C/O Chest Pain: No Allergies: Allergies: Allergies Coded Allergies Type Severity Reaction Last Updated Verified No Known Drug Allergies 07/14/21 No Physical Exam: PE: Constitutional: Well developed, well nourished, no acute distress, non-toxic appearance. [] HENT: Normocephalic, atraumatic, bilateral external ears normal, oropharynx moist, no oral exudates, nose normal. [] Eyes: PERRLA, EOMI, conjunctiva normal, no discharge. [] Neck: Normal range of motion, no tenderness, supple, no stridor. [] Cardiovascular:Heart rate regular rhythm, no murmur [] Lungs & Thorax: Bilateral breath sounds clear to auscultation [] Abdomen: Bowel sounds normal, soft, no tenderness, no masses, no pulsatile masses. [] Skin: Warm, dry, no erythema, no rash. Left forehead contusion, Left forehead abrasion[] Back: No tenderness, no CVA tenderness. [] Extremities: No tenderness, no cyanosis, no clubbing, ROM intact, no edema. [] Neurologic: Alert and oriented X 2, normal motor function, normal sensory function, no focal deficits noted. [] Psychologic: Affect normal, judgement normal, mood normal. [] Current Patient Data: Vital Signs: Vital Signs Date Time Temp Pulse Resp B/P (MAP) Pulse Ox O2 Delivery O2 Flow Rate FiO2 07/14/21 17:07 98.6 61 18 149/57 (87) 100 Room Air 98.6 EKG: EKG: [] Radiology/Procedures: Radiology/Procedures: [] Impression: [facility] [address] [place], [place] [id number] IMAGING REPORT Signed PATIENT: SEGUNDO SANCHEZ ACCOUNT: [id number] : 1940 LOCATION: ER AGE: 80 SEX: F EXAM STATUS: REG ER ORD. PHYSICIAN: DOT SANCHEZ APRN REASON: Fall, contusion to left forehead PROCEDURE: CT HEAD AND CERVICAL SPINE WO Exam: CT head and cervical spine without contrast INDICATION: Fall, contusion to left forehead TECHNIQUE: Sequential axial images through the head and cervical spine were obtained without the administration of IV contrast. Exposure: One or more of the following in the visualized dose reduction techniques were utilized for this examination: 1. Automated exposure control 2. Adjustment of the MA and/or KV according to patient size 3. Use of iterative of reconstructive technique Comparisons: 04/20/2018 FINDINGS: Head: No focal parenchymal lesion or hemorrhage is identified. There is no midline shift or sulcal effacement. Mild patchy evidence in periventricular white matter, similar to prior. No acute vascular territory infarction is identified. Jeff-white distinction is preserved. The ventricular system is within normal limits without compression hydrocephalus. The basal cisterns are well maintained. Extra soft tissue scalp contusion overlying the left frontal region. The visualized portions of the paranasal sinuses and mastoid air cells are well- pneumatized. No acute fractures. Cervical spine: Vertebral body heights are well-maintained. Straightening of cervical spine which may positional. Fracture to the cervical spine is not identified. Multilevel spondylotic change in cervical spine with degenerative disc disease greatest at C3-C4, C4-C5 and C5-C6. Visualized paraspinal soft tissues are unremarkable. IMPRESSION: 1. Extra cranial soft tissue scalp contusion overlying the left frontal region without underlying osseous or intracranial abnormality. 2. Negative CT C-spine for acute traumatic injury. Electronically signed by: Elliott Greco MD (07/14/2021 5:53 PM) [facility] DICTATED and SIGNED BY: ELLIOTT GRECO MD DATE: 07/14/21 [id number] 0 Course & Med Decision Making: Course & Med Decision Making Pertinent Labs and Imaging studies reviewed. (See chart for details) See HPI. Alert and oriented x2. This is normal for her per the . Answering my questions appropriately speaks in full clear sentences. No extremity swelling, deformity, lacerations. No hip or pelvic pain with palpation and pelvic rock. Patient is moving all 4 extremities equally with equal strengths. Radial pulses are strong and present. Vital signs are within normal limits. Left forehead contusion and superficial abrasion. Patient is given a tetanus vaccine in the ED. No focal bony spinal tenderness. Abdomen is soft and nontender. No other trauma seen to her body. No facial trauma. Full range of motion of her neck. [] Dragon Disclaimer: Dragon Disclaimer: This electronic medical record was generated, in whole or in part, using a voice recognition dictation system. Departure Departure Impression: Primary Impression: Fall Qualified Codes: W19.XXXA - Unspecified fall, initial encounter Additional Impressions: Head injury Qualified Codes: S09.90XA - Unspecified injury of head, initial encounter UTI (urinary tract infection) Qualified Codes: N39.0 - Urinary tract infection, site not specified; R31.9 - Hematuria, unspecified Disposition: 01 HOME / SELF CARE / HOMELESS Condition: STABLE Referrals: UNKNOWN PCP NAME (PCP) Patient Instructions: Contusion, Fall Prevention and Home Safety, Head Injury, Adult, Urinary Tract Infection Additional Instructions: Follow-up with primary care provider in the next week if needed. If at any point you are dizzy, having severe headache, vomiting or losing consciousness return to the emergency room. Drink plenty of fluids to stay hydrated. Take Tylenol for pain. Scripts Nitrofurantoin Monohyd/M-Cryst (MACROBID 100 MG CAPSULE) 100 Mg Capsule 1 CAP PO BID for 7 Days, #14 CAP 0 Refills Prov: DOT SANCHEZ APRN 07/14/21 DOT SANCHEZ APRN Jul 14, 2021 17:43
--- NOTE | 2021-07-14 17:55 | RAD ---
Exam: CT head and cervical spine without contrast INDICATION: Fall, contusion to left forehead TECHNIQUE: Sequential axial images through the head and cervical spine were obtained without the admi nistration of IV contrast. Exposure: One or more of the following in the visualized dose reduction techniques were utilized for this examination: 1. Automated exposure control 2. Adjustment of the MA and/or KV according to patient size 3. Use of iterative of reconstructive technique Comparisons: 04/20/2018 FINDINGS: Head: No focal parenchymal lesion or hemorrhage is identified. There is no midline shift or sulcal effaceme nt. Mild patchy evidence in periventricular white matter, similar to prior. No acute vascular territory i nfarction is identified. Jeff-white distinction is preserved. The ventricular system is within normal limits without compression hydrocephalus. The basal cisterns are well maintained. Extra soft tissue scalp contusion overlying the left frontal region. The visualized portions of the p aranasal sinuses and mastoid air cells are well-pneumatized. No acute fractures. Cervical spine: Vertebral body heights are well-maintained. Straightening of cervical spine which may positional. Fracture to the cervical spine is not identified. Multilevel spondylotic change in cervical spine with degenerative disc disease greatest at C3-C4, C4- C5 and C5-C6. Visualized paraspinal soft tissues are unremarkable. IMPRESSION: 1. Extra cranial soft tissue scalp contusion overlying the left frontal region without underlying os seous or intracranial abnormality. 2. Negative CT C-spine for acute traumatic injury. Electronically signed by: Jose Luna MD (07/14/2021 5:53 PM) [facility]
[2021-07-14] MEDS ORDERED: DIPH,PERTUSS(ACELL),TET VAC/PF 0.5 ML SYRINGE. VAX IM ONE (18:00)
[2021-07-14 18:17] LABS: BILIRUBIN,URINE NEGATIVE (NEG); CLARITY,URINE CLEAR; COLOR,URINE YELLOW; NITRITE,URINE NEGATIVE (NEG); PROTEIN,URINE NEGATIVE (NEG-TRACE)
[2021-07-14 18:22] LABS: BACTERIA,URINE 0 /HPF (0-FEW); RBC,URINE RARE /HPF (0-2)
[2021-07-14] MEDS ORDERED: NITR100C62 PO (18:29)
[2021-07-14 18:53] VITALS: BP 141/66
== END 2021-07-14 18:49 | disposition home or self-care (01) ==
LOC: ER 16:01
DX: S00.83XA Contusion of other part of head, initial encounter (principal); K21.9 Gastro-esophageal reflux disease without esophagitis; I10 Essential (primary) hypertension; G30.9 Alzheimer's disease, unspecified; F02.80 Dementia in other diseases classified elsewhere, unspecified severity, without behavioral disturbance, psychotic disturbance, mood disturbance, and anxiety; W01.0XXA Fall on same level from slipping, tripping and stumbling without subsequent striking against object, initial encounter; Y93.89 Activity, other specified; Y92.89 Other specified places as the place of occurrence of the external cause; Y99.8 Other external cause status
CPT/HCPCS: 70450; 72125; 81001; 87086; 90471; 90715; 99284-25

== ENCOUNTER 2021-07-28 14:08 | Emergency (ER) | payer MEDICARE, BC ==
[~2021-07-28] VITALS: Ht 157.5 cm; Wt 47.0 kg
[~2021-07-28 14:08] MED LIST changes: +NITR100C62 PO
[2021-07-28 14:57] LABS: BASO % 1 % (0-3); EOS # 0.2 x10^3/uL (0.0-0.7); EOS % 8 % (0-3); HEMATOCRIT 39.3 % (36.0-47.0); HEMOGLOBIN 12.8 g/dL (12.0-15.5); LYMPH # 0.8 x10^3/uL (1.0-4.8); LYMPH % 35 % (24-48); MEAN CORPUSCULAR HEMOGLOBIN 30 pg (25-35); MEAN CORPUSCULAR HGB CONC 33 g/dL (31-37); MEAN CORPUSCULAR VOLUME 91 fL (79-100); MONO # 0.2 x10^3/uL (0.0-1.1); MONO % 8 % (0-9); NEUT # 1.1 x10^3/uL (1.8-7.7); NEUT % 48 % (31-73); PLATELET COUNT 155 x10^3/uL (140-400); RED BLOOD COUNT 4.32 x10^6/uL (3.50-5.40); RED CELL DISTRIBUTION WIDTH 13.8 % (11.5-14.5); WHITE BLOOD COUNT 2.4 x10^3/uL (4.0-11.0)
[2021-07-28 15:06] LABS: PROTHROMBIN TIME PATIENT 12.9 SEC (11.7-14.0)
[2021-07-28 15:10] LABS: CALCIUM 8.8 mg/dL (8.5-10.1); GFR 64.9; POTASSIUM 3.7 mmol/L (3.5-5.1)
[2021-07-28] MEDS ORDERED: IOHEXOL 300 MG/ML 100ML VIAL. IV ONE (15:15)
[2021-07-28] MEDS ORDERED: CONTRAST GIVEN. MC PRN (15:15)
[2021-07-28 15:16] LABS: ALBUMIN 3.6 g/dL (3.4-5.0); TOTAL BILIRUBIN 0.3 mg/dL (0.2-1.0); TOTAL PROTEIN 7.2 g/dL (6.4-8.2)
--- NOTE | 2021-07-28 16:07 | RAD ---
PQRS Compliance Statement: One or more of the following individualized dose reduction techniques were utilized for this examinat ion: 1. Automated exposure control 2. Adjustment of the mA and/or kV according to patient size 3. Use of iterative reconstruction technique Exam performed: CT abdomen and pelvis with contrast HISTORY: Rectal or urinary bleeding. DATE OF SERVICE: 07/28/2021. COMPARISON: None available TECHNIQUE: Contiguous helical acquisitions are obtained through the abdomen and pelvis during intrave nous administration of 75 cc of Omnipaque 300. Sagittal and coronal reformatted images are obtained. FINDINGS: Linear opacity seen in the right lung base, the left lung base is clear. The visualized heart is norm al. The liver, spleen, pancreas and gallbladder appears normal. Both adrenal glands and bilateral kidneys are normal in size with symmetric excretion of contrast via both kidneys. There is no hydronephrosis or nephrolithiasis. Diffuse atheromatous aortic calcification is seen without aneurysm. Small bowel loops are nondilated and unremarkable. There is diffuse scattered stool in the colon. Urinary bladder is decompressed. The uterus is anteverted no adnexal masses seen. There is diffuse th ickening of the rectal mac although incompletely evaluated due to lack of contrast. No abnormal adj acent lymphadenopathy is seen. Interrogation of bone windows demonstrates spondylotic changes and deg enerative disc disease involving over S1. IMPRESSION: No acute intra-abdominal process seen. There is thickening of the rectal mac, incompletely evaluated due to lack of contrast. Evaluation w ith sigmoidoscopy exam may be obtained. Electronically signed by: Joan Castillo MD (07/28/2021 4:04 PM) [facility]
--- NOTE | 2021-07-28 16:29 | PHYS DOC ---
Past Medical History Past Medical History: Anxiety, Constipation, GERD, Hypertension Additional Past Medical Histor: Palpitations, SEASONAL ALLERGIES Past Surgical History: Other Additional Past Surgical Histo: Hemmorhoids Smoking Status: Never Smoker Alcohol Use: None Drug Use: None General Adult EDM: Chief Complaint: RECTAL BLEED HPI: HPI: 80 yo F PMH alzheimers dementia, anxiety, constipation, GERD, and HTN presents to the ed with her , (patient consents to his/her/their knowledge and involvement in pts' medical care), with complaints of "blood on my underwear." Hx difficult from patient due to history of dementia. I spoke to dee dee valladares's daughter who informed me patient lives with daughter and grandson who assist with care. Patient was at [employer] today and had urinary incontinence with urine dribbling down her leg. Daughter states she ran out of diapers. Daughter states patient has been acting like her normal self/is at her baseline dementia. Denies any fall or traumas. Review of Systems: Review of Systems: Review of systems difficult limited due to patient's dementia Heart Score: C/O Chest Pain: No Risk Factors: Risk Factors: DM, Current or recent (<one month) smoker, HTN, HLP, family history of CAD, obesity. Risk Scores: Score 0 - 3: 2.5% MACE over next 6 weeks - Discharge Home Score 4 - 6: 20.3% MACE over next 6 weeks - Admit for Clinical Observation Score 7 - 10: 72.7% MACE over next 6 weeks - Early Invasive Strategies Current Medications: Current Medications Medications (Trade) Dose Ordered Sig/Aimee Start Time Stop Time Status Last Admin Dose Admin Info (CONTRAST GIVEN -- Rx MONITORING) 1 each PRN DAILY PRN 07/28/21 15:15 07/30/21 15:14 Iohexol (Omnipaque 300 Mg/ml) 75 ml 1X ONCE 07/28/21 15:15 07/28/21 15:16 DC Allergies: Allergies: Allergies Coded Allergies Type Severity Reaction Last Updated Verified No Known Drug Allergies 07/14/21 No Physical Exam: PE: Constitutional: Well developed, well nourished, no acute distress, non-toxic appearance. HENT: Normocephalic, atraumatic, Eyes: EOMI, conjunctiva normal, no discharge. Neck: Normal range of motion, supple, Cardiovascular: S1/2 present, regular rhythm Lungs & Thorax: Speaking in full sentences, bilateral equal chest rise, no tachy pnea or increased work of breathing Abdomen: soft, no tenderness, Skin: Warm, dry, no erythema, no rash. [] Back: No tenderness, no CVA tenderness. [] Extremities: No tenderness, no cyanosis, no lower extremity edema Neurologic: Alert, no focal deficits noted. [] Psychologic: Affect normal, judgement normal, mood normal. [] : rectal vault empty with no melena or bright red blood, small amount nonthrombosed external hemorrhoid, no vaginal bleeding, tolerated exam well Current Patient Data: Labs: Laboratory Tests Test 07/28/21 14:45 White Blood Count 2.4 x10^3/uL (4.0-11.0) L Red Blood Count 4.32 x10^6/uL (3.50-5.40) Hemoglobin 12.8 g/dL (12.0-15.5) Hematocrit 39.3 % (36.0-47.0) Mean Corpuscular Volume 91 fL (79-100) Mean Corpuscular Hemoglobin 30 pg (25-35) Mean Corpuscular Hemoglobin Concent 33 g/dL (31-37) Red Cell Distribution Width 13.8 % (11.5-14.5) Platelet Count 155 x10^3/uL (140-400) Neutrophils (%) (Auto) 48 % (31-73) Lymphocytes (%) (Auto) 35 % (24-48) Monocytes (%) (Auto) 8 % (0-9) Eosinophils (%) (Auto) 8 % (0-3) H Basophils (%) (Auto) 1 % (0-3) Neutrophils # (Auto) 1.1 x10^3/uL (1.8-7.7) L Lymphocytes # (Auto) 0.8 x10^3/uL (1.0-4.8) L Monocytes # (Auto) 0.2 x10^3/uL (0.0-1.1) Eosinophils # (Auto) 0.2 x10^3/uL (0.0-0.7) Basophils # (Auto) 0.0 x10^3/uL (0.0-0.2) Prothrombin Time 12.9 SEC (11.7-14.0) Prothrombin Time INR 1.0 (0.8-1.1) Activated Partial Thromboplast Time 26 SEC (24-38) Sodium Level 142 mmol/L (136-145) Potassium Level 3.7 mmol/L (3.5-5.1) Chloride Level 104 mmol/L (98-107) Carbon Dioxide Level 32 mmol/L (21-32) Anion Gap 6 (6-14) Blood Urea Nitrogen 25 mg/dL (7-20) H Creatinine 1.0 mg/dL (0.6-1.0) Estimated GFR (Cockcroft-Gault) 64.9 BUN/Creatinine Ratio 25 (6-20) H Glucose Level 94 mg/dL (70-99) Calcium Level 8.8 mg/dL (8.5-10.1) Total Bilirubin 0.3 mg/dL (0.2-1.0) Aspartate Amino Transferase (AST) 34 U/L (15-37) Alanine Aminotransferase (ALT) 47 U/L (14-59) Alkaline Phosphatase 74 U/L (46-116) Total Protein 7.2 g/dL (6.4-8.2) Albumin 3.6 g/dL (3.4-5.0) Albumin/Globulin Ratio 1.0 (1.0-1.7) Laboratory Tests 07/28/21 14:45 Laboratory Tests 07/28/21 14:45 Vital Signs: Vital Signs Date Time Temp Pulse Resp B/P (MAP) Pulse Ox O2 Delivery O2 Flow Rate FiO2 07/28/21 14:25 97.7 54 18 143/65 (91) Room Air 97.7 EKG: EKG: [] Radiology/Procedures: Radiology/Procedures: IMAGING REPORT Signed PATIENT: SEGUNDO SANCHEZ ACCOUNT: [id number] : 1940 LOCATION: ER AGE: 80 SEX: F EXAM STATUS: REG ER ORD. PHYSICIAN: CAROL CATALAN DO REASON: rectal or urinary bleeding PROCEDURE: CT ABD PELV W/ IV CONTRST ONLY PQRS Compliance Statement: One or more of the following individualized dose reduction techniques were utilized for this examination: 1. Automated exposure control 2. Adjustment of the mA and/or kV according to patient size 3. Use of iterative reconstruction technique Exam performed: CT abdomen and pelvis with contrast HISTORY: Rectal or urinary bleeding. DATE OF SERVICE: 07/28/2021. COMPARISON: None available TECHNIQUE: Contiguous helical acquisitions are obtained through the abdomen and pelvis during intravenous administration of 75 cc of Omnipaque 300. Sagittal and coronal reformatted images are obtained. FINDINGS: Linear opacity seen in the right lung base, the left lung base is clear. The visualized heart is normal. The liver, spleen, pancreas and gallbladder appears normal. Both adrenal glands and bilateral kidneys are normal in size with symmetric excretion of contrast via both kidneys. There is no hydronephrosis or nephrolithiasis. Diffuse atheromatous aortic calcification is seen without aneurysm. Small bowel loops are nondilated and unremarkable. There is diffuse scattered stool in the colon. Urinary bladder is decompressed. The uterus is anteverted no adnexal masses seen. There is diffuse thickening of the rectal mac although incompletely evaluated due to lack of contrast. No abnormal adjacent lymphadenopathy is seen. Interrogation of bone windows demonstrates spondylotic changes and degenerative disc disease involving over S1. IMPRESSION: No acute intra-abdominal process seen. There is thickening of the rectal mac, incompletely evaluated due to lack of contrast. Evaluation with sigmoidoscopy exam may be obtained. Electronically signed by: Joan Castillo MD (07/28/2021 4:04 PM) [facility] DICTATED and SIGNED BY: JOAN CASTILLO MD DATE: 07/28/21 [id number] 0 Course & Med Decision Making: Course & Med Decision Making Pertinent Labs and Imaging studies reviewed. (See chart for details) Concern for acute on chronic urinary incontience is a well-appearing female. Pt sleeping comfortably in ed stretcher. Will discharge home with strict ED return precautions were given for fever, confusion, trauma, hematuria, melena or hematochezia. Encouraged urgent outpatient follow-up with PMD for routine care. Life-threatening processes were considered but are low suspicion at this time, given history, physical exam and ED workup. Pt was educated on all prescription medications and adverse effects. All patient's questions were answered and pt was stable at time of discharge. Life/limb-threatening differential includes but is not limited to, end organ damage/sepsis, trauma/abuse/neglect, neurologic deficit, alcohol/drug ingestion, toxidrome, suicidal/homicidal ideations plans or attempts, psychosis or mental illness resulting in self neglect and inability to care for self. I have spoken with the patient and/or caregivers. I explained the patient's condition, diagnoses and treatment plan based on the information available to me at this time. I have answered the patient and/or caregiver's questions and addressed any concerns. The patient and/or caregivers have a good understanding of patient's diagnosis, condition and treatment plan as can be expected at this point. Vital signs have been stable. Patient's condition is stable and appropriate for discharge from the emergency department. Patient will pursue further outpatient evaluation with primary care physician or other designated or consulting physician as outlined in the discharge inst ructions. The patient and/or caregivers are agreeable to this plan of care and follow-up instructions have been explained in detail. The patient and/or caregivers have received these instructions in written form and have expressed an understanding of the discharge instructions. The patient and/or caregivers are aware that any significant change of condition or worsening of symptoms should prompt immediate return to this or the closest emergency department or call to 1[facility]uri Marquez Disclaimer: Alma Disclaimer: This electronic medical record was generated, in whole or in part, using a voice recognition dictation system. Departure Departure Impression: Primary Impression: Urinary incontinence Additional Impression: Dementia Disposition: 01 HOME / SELF CARE / HOMELESS Condition: STABLE Referrals: RAULITO JAMES MD (PCP) Follow-up with your primary care physician in 24 to 48 hours OR FOLLOW UP WITH FAMILY MEDICINE: [address], [address] [place] [address] Patient Instructions: Urinary Incontinence-Brief Additional Instructions: EMERGENCY DEPARTMENT GENERAL DISCHARGE INSTRUCTIONS Thank you for coming to [facility] Emergency Department (ED) today and trusting us with you care. We trust that you had a positive experience in our Emergency Department. If you wish to speak to the department management, you may call the Director at [phone]. YOUR FOLLOW UP INSTRUCTIONS ARE FOLLOWS: 1. Do you have a private Doctor? If you do not have a private doctor, please ask for a resource list of physicians or clinics that may be able to assist you with follow up care. 2. The Emergency Physicain has interpreted your x-rays. The X-Ray specialist will also review them. If there is a change in the findings, you will be notified in 48 hours when at all possible. 3. A lab test or culture has been done, your results will be reviewed and you will be notified if you need a change in treatment. ADDITIONAL INSTRUCTIONS AND INFORMATION: 1. Your care today has been supervised by a physician who is specially trained in emergency care. Many problems require more than one evaluation for a complete diagnosis and treatment. We recommend that you schedule your follow up appointment as recommended to ensure complete treatment of you illness or injury. If you are unable to obtain follow up care and continue to have a problem, or if your condition worsens, we recommend that you return to the ED. 2. We are not able to safely determine your condition over the phone nor are we able to give sound medical advice over the phone. For these safety reasons, if you call for medical advice we will ask you to come to the ED for further evaluation. 3. If you have any questions regarding these discharge instructions please call the ED at [phone]. SAFETY INFORMATION: In the interest of safety, wellness, and injury prevention; we encourage you to wear your sealbelt, if you smoke; quite smoking, and we encourage family to use a protective helmet for bicycling and other sporting events that present an increased risk for head injury. IF YOUR SYMPTOMS WORSEN OR NEW SYMPTOMS DEVELOP, OR YOU HAVE CONCERNS ABOUT YOUR CONDITION; OR IF YOUR CONDITION WORSENS WHILE YOU ARE WAITING FOR YOUR FOLLOW UP APPOINTMENT; EITHER CONTACT YOUR PRIMARY CARE DOCTOR, THE PHYSICIAN WHOSE NAME AND NUMBER YOU WERE GIVEN, OR RETURN TO THE ED IMMEDIATELY. CAROL JOYCE DO Jul 28, 2021 16:29
[2021-07-28 17:53] LABS: BILIRUBIN,URINE NEGATIVE (NEG); CLARITY,URINE CLEAR; COLOR,URINE YELLOW; NITRITE,URINE NEGATIVE (NEG); PH,URINE 7.5 (<5.0-8.0); PROTEIN,URINE NEGATIVE (NEG-TRACE)
[2021-07-28 17:54] LABS: BACTERIA,URINE 0 /HPF (0-FEW); RBC,URINE 0 /HPF (0-2); WBC,URINE OCC /HPF (0-4)
[2021-07-28 18:11] VITALS: BP 148/68
== END 2021-07-28 18:44 | disposition home or self-care (01) ==
LOC: ER 14:08
DX: R32 Unspecified urinary incontinence (principal); K21.9 Gastro-esophageal reflux disease without esophagitis; I10 Essential (primary) hypertension; G30.9 Alzheimer's disease, unspecified; F02.80 Dementia in other diseases classified elsewhere, unspecified severity, without behavioral disturbance, psychotic disturbance, mood disturbance, and anxiety
CPT/HCPCS: 36415; 74177; 80053; 81001; 85025; 85610; 85730; 99285; Q9967